=== PATIENT | male | born 1975 | race Caucasian/White ===

== ENCOUNTER 2020-03-10 09:53 | Emergency (ER) | payer MEDICAID ==
[~2020-03-10] VITALS: Ht 172.7 cm; Wt 70.0 kg
[~2020-03-10 09:53] MED LIST: ARIP10TA33 PO; ASEN10TA9 PO; ATEN100T; DIPH25CA61; DIVA250T4; HALO5AMP3; LITH20CA; QUET100T4; RISP0.5T24; TRAZ-175 PO
[2020-03-10 10:00] VITALS: BP 142/88
[2020-03-10] MEDS ORDERED: ZIPRASIDONE 20 MG INJ IM ONE (10:05)
--- NOTE | 2020-03-10 10:06 | NUR ---
CRUZ RN: THIS IS A 44 YO MALE PT KAREEN MCKEON FROM [facility] WHERE [employer] WAS ON SCENE. PER MEDIC PT STATED HE WAS SUICIDAL AND IS HAVING HALLUCINATIONS AND IS PARANOID. PT AO X SELF, [facility] 14 PER EMS. PT DENIES ETOH OR DRUG BUT ADMITTED TO DRUG USE TO EMS PRIOR TO TODAY. PT RESTLESS WITH JERKY MOVEMENTS AND FLIGHT OF IDEAS. PT NOT MAKING SI STATEMENTS HERE AND REFUSING TO ALLOW VS OR CHANGE INTO GOWN. VS FROM EMS JUST PRIOR TO ARRIVAL. PT REFUSING TO ALLOW TEMPERATURE OR OHER VS AT THIS TIME. REPORT TO PRIMARY RN JENNY.
[2020-03-10] MEDS ORDERED: LORazepam 2 MG/ML, 1ML ONE (10:08)
--- NOTE | 2020-03-10 10:19 | NUR ---
Pt refusing to change into gown, hostile with staff, states he wants to leave. Wai MORRIS at bedside to evaluate pt. Pt denies SI, contracts with Wai MORRIS for safety if he leaves. Pt ok to leave per Wai MORRIS. Pt fully dressed, ambulatory out of unit with all his belongings, escorted by security to ensure staff safety due to agitation.
[2020-03-10] MEDS ORDERED: LORazepam 2 MG/ML, 1ML IM ONE (10:30)
== END 2020-03-10 10:23 | disposition left against medical advice (07) ==
LOC: ED 09:55
DX: F15.122 Other stimulant abuse with intoxication with perceptual disturbance (principal); Z72.9 Problem related to lifestyle, unspecified
CPT/HCPCS: 99283